=== PATIENT | female | born 1990 | race Caucasian/White ===

== ENCOUNTER 2025-09-05 09:24 | Outpatient (RCR) | payer OTHER, SELFPAY ==
[2025-09-05 09:26] VITALS: BP 125/73; PULSE 105; TEMP 36.5; O2SAT 98
[2025-09-05] MEDS: RHO(D) IMMUNE GLOBULIN 1,500 UNIT SYRINGE 1500 UNIT IM (09:33)
== END 2025-09-12 08:29 | disposition home or self-care (01) ==
LOC: LAB 09:24
PROVIDERS: Visit Provider Midwife
DX: Z51.81 Encounter for therapeutic drug level monitoring (principal); O09.899 Supervision of other high risk pregnancies, unspecified trimester
CPT/HCPCS: 36415; 86850; 86900; 86901; J2791

== ENCOUNTER 2025-09-26 09:51 | Outpatient (OUT) | payer OTHER, SELFPAY ==
[2025-09-26 10:17] VITALS: BP 108/73; PULSE 116
== END 2025-09-26 10:40 | disposition home or self-care (01) ==
LOC: FBCO 09:54 → FBC 10:07
PROVIDERS: Visit Provider Midwife
DX: O24.419 Gestational diabetes mellitus in pregnancy, unspecified control (principal); Z3A.31 31 weeks gestation of pregnancy
CPT/HCPCS: 59025

== ENCOUNTER 2025-10-03 07:52 | Outpatient (OUT) | payer OTHER, SELFPAY ==
--- OUTSIDE RECORDS SUMMARY | 2025-09-29 13:30 | XMS_ITS | Encounter Summary ---
Author Organization [facility] Address [address] [place] [address] Care Team Providers Care Research Epidemiologist Name Role Phone Felicita Coe NP Unavailable Raghavendra Leyva MD Primary Care Provider [phone] Encounter Details DateTypeDepartmentCare Team (Latest Contact Info)Lrykqieuxea77/18/2025 1:30 PM ESTAncillary Procedure [facility] [address] [place] [address] History of gestational diabetes Social History Tobacco UseTypesPacks/DayYears UsedDateSmoking Tobacco: NeverSmokeless Tobacco: NeverAlcohol UseStandard Drinks/WeekCommentsNot Currently0 (1 standard drink = 0.6 oz pure alcohol)Rare useHumiliation, Afraid, Rape, and Kick questionnaire AnswerDate RecordedWithin the last year, have you been afraid of your partner or ex-partner?No05/07/2023Within the last year, have you been humiliated or emotionally abused in other ways by your partner or ex-partner?No05/07/2023 Within the last year, have you been kicked, hit, slapped, or otherwise physically hurt by your partner or ex-partner?No05/07/2023Within the last year, have you been raped or forced to have any kind of sexual activity by your part ner or ex-partner?No05/07/2023Social Connection and Isolation PanelAnswerDate RecordedIn a typical week, how many times do you talk on the phone with family, friends, or neighbors?Three times a week05/07/2023How often do you get together with friends or relatives?Twice a week05/07/2023How often do you attend judaism or faith services?1 to 4 times per year05/07/2023o you belong to any clubs or organizations such as judaism groups, unions, fraternal or athletic groups, or school groups?No05/07/2023How often do you attend meetings of the clubs or organizations you belong to?Patient exmuzkca59/26/2023re you , , , , never , or living with a partner?Ecjvkws6605/07/2023 AUDIT-CAnswerDate RecordedQ1: How often do you have a drink containing alcohol? Monthly or less05/07/2023Q2: How many drinks containing alcohol do you have on a typical day when you are drinking?1 or Q3: How often do you have six or more drinks on one occasion?Never05/07/2023Overall Financial Resource Strain (CARDIA)AnswerDate RecordedHow hard is it for you to pay for the very basics like food, housing, medical care, and heating?Not hard at all05/07/2023HQ-2 AnswerDate RecordedPatient Health Questionnaire-2 Njpdt07912/04/2022[facility] [place] of Occupational Health - Occupational Stress QuestionnaireAnswerDate RecordedDo you feel stress - tense, restless, nervous, or anxious, or unable to sleep at night because yourmind is troubled all the time - these days?Not at all 05/07/2023Exercise Vital SignAnswerDate RecordedOn average, how many days per week do you engage in moderate to strenuous exercise (like a brisk walk)?2 days 05/07/2023On average, how many minutes do you engage in exercise at this level? 30 min05/07/2023Hunger Vital SignAnswerDate RecordedWithin the past 12 months, you worried that your food would run out before you got the money to buymore. Never true05/07/2023Within the past 12 months, the food you bought just didn't last and you didn't have money to get more.Never true07/26/2023PRAPARE - TransportationAnswerDate RecordedIn the past 12 months, has lack of transportation kept you from medical appointments or from getting medications?No 05/07/2023In the past 12 months, has lack of transportation kept you from meetings, work, or from getting things needed for daily living?No05/07/2023 Housing Stability Vital SignAnswerDate RecordedIn the last 12 months, was there a time when you were not able to pay the mortgage or rent on time?No05/07/2023In the last 12 months, how many places have you lived?In the last 12 months, was there a time when you did not have a steady place to sleep or slept in ashelter (including now)?No05/07/2023Estimated Date of Delivery BqalmoedGtn19/11/2026Based on last menstrual period of 02/16/2025 (Exact Date)Sex and Gender InformationValueDate RecordedSex Assigned at ImkgoAevkzh06/26/2023 9:04 AM EDTLegal GbsBzjbmc20/15/2023 6:48 PM EDTGender YtxntyfmWembdn17/26/2023 9:04 AM EDTSexual OrientationNot on fileOccupationIndustryJob Start DateJob End Datephysician assistantNot on fileNot on fileNot on filedocumented as of this encounter Plan of Treatment DateTypeDepartmentCare Team (Latest Contact Info)Dnygqodxngn85/24/2025 8:15 AM ESTAncillary Procedure [facility] [place] [facility] [address] [facility] [address] [place] [address] 10/11/2025 10:00 AM ESTRoutine [facility] [place] [facility] [address] [place] [address] Keshia Lema, ROELM [address] [place] [address] 10/14/2025 8:15 AM ESTAncillary Procedure [facility] [place] [facility] [address] [facility] [address] [place] [address] 10/18/2025 8:30 AM ESTRoutine [facility] [place] [facility] [address] [facility] [place] [place] [address] Keshia Lema CNM [address] [place] [address] 10/21/2025 11:00 AM ESTAncillary Procedure [facility] [place] [facility] [address] [facility] [address] [place] [address] 10/25/2025 10:00 AM ESTRoutine [facility] [place] [facility] [address] [facility] [place] [address] Keshia Lema CNM [address] [place] [address] 10/28/2025 8:15 AM ESTAncillary Procedure [facility] [place] [facility] [address] [place] [address] 10/31/2025 1:30 PM ESTRoutine [facility] [place] [facility] [address] [facility] [place] [address] Keshia Lema CN [address] [place] [address] 11/03/2025 10:30 AM ESTAncillary Procedure [facility] [place] [facility] [address] [facility] [address] [place] [address] 11/07/2025 1:30 PM ESTRoutine [facility] [place] [facility] [address] [facility] [place] [address] Keshia Lema CN [address] [place] [address] 11/10/2025 10:00 AM ESTAncillary Procedure [facility] [place] [facility] [address] [facility] [address] [place] [address] 11/15/2025 10:00 AM ESTRoutine [facility] [address] [facility] [place] [address] Keshia Lema, CNM [address] [place] [address] 11/18/2025 10:30 AM ESTAncillary Procedure [facility] [address] [facility] [address] [place] [address] 03/01/2026 9:00 AM EDTOffice Visit [facility] [address] [facility] [place] [address] Keshia Lema, CNM [address] [place] [address] NameTypePriorityAssociated DiagnosesDate/TimeUS biophysical profile wo non stress testingImagingRoutine History of gestational diabetes 09/29/2025 1:40 PM ESTdocumented as of this encounter Visit Diagnoses Diagnosis History of gestational diabetes Personal history of other genital system and obstetric disorders documented in this encounter Care Teams Team MemberRelationshipSpecialtyStart DateEnd Date Raghavendra Leyva MD [address] [place] [address] PCP - GeneralFamily Medicine06/16/25 Felicita Coe NP [address] [facility], [place] [phone] Nurse PractitionerFamily Medicine02/18/25documented as of this encounter
--- OUTSIDE RECORDS SUMMARY | 2025-09-29 14:30 | XMS_ITS | Encounter Summary ---
Author Organization [facility] Address [address] [place] [address] Care Team Providers Care Calender Wind Up Tender Name Role Phone Felicita Coe NP Unavailable [phone] Raghavendra Leyva MD Primary Care Provider [phone] Encounter Details DateTypeDepartmentCare Team (Latest Contact Info)Uxrttgwygsh60/18/2025 2:30 PM ESTRoutine [facility] [address] [place] [address] Keshia Lema, CNM [address] [place], [place] [phone] History of gestational diabetes (Primary Dx); Encounter for supervision of other normal , third trimester ([facility]) Social History Tobacco UseTypesPacks/DayYears UsedDateSmoking Tobacco: NeverSmokeless [...] relatives?Twice a week05/07/2023How often do you attend lutheran or jainism services?1 to 4 times per year05/07/2023o you belong to any clubs or organizations such as lutheran groups, unions, fraRingpay or athletic groups, or school groups?No05/07/2023How often do you attend meetings of the clubs or organizations you belong to?Patient oyinyvqc55/26/2023re you , , , , never , or living with a partner?Bhqzolp4505/07/2023 AUDIT-CAnswerDate RecordedQ1: How often do you have [...] hard at all05/07/2023HQ-2 AnswerDate RecordedPatient Health Questionnaire-2 Gaxey05112/04/2022[facility] [place] of Occupational Health - Occupational Stress QuestionnaireAnswerDate [...] you didn't have money to get more.Never true05/07/2023RAPARE - TransportationAnswerDate RecordedIn the past 12 months, [...] steady place to sleep or slept in loogooteeelter (including now)?No05/07/2023Estimated Date of Delivery RqefequuAqj64/11/2026ased on last menstrual period of 02/16/2025 (Exact Date)Sex and Gender InformationValueDate RecordedSex Assigned at MfbbrAawffu43/26/2023 9:04 AM EDTLegal JsmUdqwwf18/15/2023 6:48 PM EDTGender QpitsfqpDbjvdy73/26/2023 9:04 AM EDTSexual OrientationNot on fileOccupationIndustryJob Start DateJob End Datephysician assistantNot on fileNot on fileNot on filedocumented as of this encounter Last Filed Vital Signs Vital SignReadingTime TakenCommentsBlood Cmhvamci176/7209/29/2025 1:41 PM EST Pulse--Temperature--Respiratory Rate--Oxygen Saturation--Inhaled Oxygen Concentration--Abprzm42.4 kg (175 lb)09/29/2025 1:41 PM ESTHeight--Body Mass Index25.8410/03/2023 8:24 AM ESTdocumented in this encounter Progress Notes * Keshia Lema CNM - 09/29/2025 2:30 PM EST Subjective No chief complaint on file. Yonatan Braden is a 35 y.o. at 32w1d with a working estimated date of delivery of 11/23/2025, by Last Menstrual Period who presents for a routine visit. She denies vaginal bleeding, leakage of fluid, decreased movements, or contractions. OB History Para Term AB Living 3 2 2 SAB IAB Ectopic Multiple Live Births 2 # Outcome Date GA Lbr Elbert/2nd Weight Sex Type Anes PTL Lv 3 Current 2 Para 9 lb 1 oz Vag-Spont Comments: small 1st degree not repaired 1 Para 8 lb 8 oz Vag-Spont Her is complicated by: GDM Objective Physical Exam Weight: 175 lb Expected Total Weight Gain: 25 lb-35 lb Pregravid BMI: 23.62 BP: 118/72 Urine protein-negative Urine glucose-negative Assessment/Plan Diagnoses and all orders for this visit: History of gestational diabetes Encounter for supervision of other normal , third trimester ([facility]) Continue vitamin. Labs reviewed. GBS at 36 weeks Expected mode of delivery Follow up in 1 week for a routine visit. documented in this encounter Plan of Treatment DateTypeDepartmentCare Team (Latest Contact Info)Vezyzsubwje26/24/2025 8:15 AM ESTAncillary Procedure [facility] [place] [facility] [address] [address] 10/11/2025 10:00 AM ESTRoutine [facility] [place] [facility] [address] [place] [address] Keshia Lema CNM [address] [place] [address] 10/14/2025 8:15 AM ESTAncillary Procedure [facility] [place] [facility] [address] [address] 10/18/2025 8:30 AM ESTRoutine [facility] [place] [facility] [address] [place] [address] Keshia Lema, ROEL [address] [place] [address] 10/21/2025 11:00 AM ESTAncillary Procedure [facility] [place] [facility] [address] [facility] [address] [place] [address] 10/25/2025 10:00 AM ESTRoutine [facility] [place] [facility] [address] [place] [address] Keshia Lema, CN [address] [place] [address] 10/28/2025 8:15 AM ESTAncillary Procedure [facility] [place] [facility] [address] [facility] [address] [place] [address] 10/31/2025 1:30 PM ESTRoutine [facility] [place] [facility] [address] [place] [address] Keshia Lema, CN [address] [place] [address] 11/03/2025 10:30 AM ESTAncillary Procedure [facility] [place] [facility] [address] [facility] [address] [place] [address] 11/07/2025 1:30 PM ESTRoutine [facility] [place] [facility] [address] [place] [address] Keshia Lema, CN [address] [place] [address] 11/10/2025 10:00 AM ESTAncillary Procedure [facility] [place] [facility] [address] [facility] [address] [place] [address] 11/15/2025 10:00 AM ESTRoutine [facility] [place] [facility] [address] [place] [address] Keshia Lema, CN [address] [facility] [place] [address] 11/18/2025 10:30 AM ESTAncillary Procedure [facility] [address] [facility] [address] [facility] [place] [address] 03/01/2026 9:00 AM EDTOffice Visit [facility] [address] [facility] [place] [address] Keshia Lema, CN [address] [facility], [place] [phone] documented as of this encounter Visit Diagnoses Diagnosis History of gestational diabetes- Primary Personal history of other genital system and obstetric disorders Encounter for supervision of other normal , third trimester ([facility]) documented in this encounter Care Teams Team MemberRelationshipSpecialtyStart DateEnd Date Raghavendra Leyva MD [address] [place] [address] PCP - GeneralFamily Medicine06/16/25 Felicita Coe NP [address] [facility] [place], [place] [address] Nurse PractitionerFamily Medicine02/18/25documented as of this encounter
--- OUTSIDE RECORDS SUMMARY | 2025-10-03 07:56 | XMS_ITS | Encounter Summary ---
Author Organization [facility] Address [address] [place] [address] Care Team Providers Care Partition Making Machine Operator Name Role Phone Felicita Coe NP Unavailable [phone] Raghavendra Leyva MD Primary Care Provider [phone] Encounter Details DateTypeDepartmentCare Team (Latest Contact Info)Hpfhlfhoemg99/18/2025Bamboo flowsheet [facility] [address] [place] [address] Keshia Lema, CN [address] [place] [address] Social History Tobacco UseTypesPacks/DayYears UsedDateSmoking Tobacco: NeverSmokeless [...] relatives?Twice a week05/07/2023How often do you attend rastafarian or denominational services?1 to 4 times per year05/07/2023o you belong to any clubs or organizations such as rastafarian groups, unions, fraUNITED ORTHOPEDIC GROUP or athletic groups, or school groups?No05/07/2023How often do you attend meetings of the clubs or organizations you belong to?Patient fsolykkm72/26/2023re you , , , , never , or living with a partner?Cdwqozg1505/07/2023 AUDIT-CAnswerDate RecordedQ1: How often do you have [...] hard at all05/07/2023HQ-2 AnswerDate RecordedPatient Health Questionnaire-2 Fttyo68312/04/2022[facility] [place] of Occupational Health - Occupational Stress QuestionnaireAnswerDate [...] in ashelter (including now)?No05/07/2023Estimated Date of Delivery RsvfatdhFki30/11/2026Based on last menstrual period of 02/16/2025 (Exact Date)Sex and Gender InformationValueDate RecordedSex Assigned at ZemarBrtniq77/26/2023 9:04 AM EDTLegal EjgNimwex15/15/2023 6:48 PM EDTGender WrxamvvkSzjgow90/26/2023 9:04 AM EDTSexual OrientationNot on fileOccupationIndustryJob Start DateJob End Datephysician assistantNot on fileNot on fileNot on filedocumented as of this encounter Plan of Treatment DateTypeDepartmentCare Team (Latest Contact Info)Bnayjcugmfg68/24/2025 8:15 AM ESTAncillary Procedure [facility] [address] [facility] [address] [place] [address] 10/11/2025 10:00 AM ESTRoutine [facility] [address] [place] [address] Keshia Lema CNM [address] [place], [place] [address] 10/14/2025 8:15 AM ESTAncillary Procedure [facility] [address] [facility] [address] [place] [address] 10/18/2025 8:30 AM ESTRoutine [facility] [address] [facility] [place] [address] Keshia Lema, CN [address] [facility] [place] [address] 10/21/2025 11:00 AM ESTAncillary Procedure [facility] [address] [facility] [address] [place] [address] 10/25/2025 10:00 AM ESTRoutine [facility] [address] [facility] [place] [address] Keshia Lema, CN [address] [place] [address] 10/28/2025 8:15 AM ESTAncillary Procedure [facility] [address] [facility] [address] [place] [address] 10/31/2025 1:30 PM ESTRoutine [facility] [address] [facility] [place] [address] Keshia Lema, [facility] [address] [place] [address] 11/03/2025 10:30 AM ESTAncillary Procedure [facility] [address] [facility] [address] [place] [address] 11/07/2025 1:30 PM ESTRoutine [facility] [place] [facility] [address] [facility] [place] [address] Keshia Lema, CN [address] [place] [address] 11/10/2025 10:00 AM ESTAncillary Procedure [facility] [place] [facility] [address] [facility] [address] [place] [address] 11/15/2025 10:00 AM ESTRoutine [facility] [place] [facility] [address] [facility] [place] [address] Keshia Lema, CNM [address] [place] [address] 11/18/2025 10:30 AM ESTAncillary Procedure [facility] [place] [facility] [address] [facility] [address] [place] [address] 03/01/2026 9:00 AM EDTOffice Visit [facility] [place] [facility] [address] [facility] [place] [address] Keshia Lema, ROEL [address] [place] [address] documented as of this encounter Visit Diagnoses Not on filedocumented in this encounter Care Teams Team MemberRelationshipSpecialtyStart DateEnd Date Raghavendra Leyva MD [address] [place] [address] PCP - GeneralFamily Medicine06/16/25 Felicita Coe NP [address] [place] [address] Nurse PractitionerFamily Medicine02/18/25documented as of this encounter
--- OUTSIDE RECORDS SUMMARY | 2025-10-03 07:56 | XMS_ITS | Clinical Summary ---
Author Organization [facility] Address [address] [place] [address], [address] [place] [address] Care Team Providers Care Industrial Relations Manager Name Role Phone Ijeoma Sanchez DO Primary Care Provider Unavailabl e Allergies No known active allergies Medications No known medications Active Problems ProblemNoted DateDiagnosed DateTerm iypsxrxos50/04/2020NSVD (normal spontaneous vaginal delivery)Normal delivery Resolved Problems ProblemNoted DateDiagnosed DateResolved DateNormal labor/ Immunizations ImmunizationAdministration DatesNext DueMMR, PRIORIX, M-M-R II, (age 12m+), SC, 0.5mL09/30/2021(Deferred: - Rubella Immune) Family History Medical HistoryRelationNameCommentsDiabetesMaternal GrandmotherRelationName StatusCommentsMaternal Grandmother Social History Tobacco UseTypesPacks/DayYears UsedDateSmoking Tobacco: NeverAlcohol UseStandard Drinks/WeekCommentsNever0 (1 standard drink = 0.6 oz pure alcohol)AUDIT-CAnswer Date RecordedQ1: How often do you have a drink containing alcohol?Never 2020Average Number of DrinksNot on file2020Frequency of Binge DrinkingNot on file2020CommentsNoSex and Gender InformationValue Date RecordedSex Assigned at BirthNot on fileLegal MvzRawckq15/10/2013 11:50 AM ESTGender IdentityNot on fileSexual OrientationNot on file Last Filed Vital Signs Vital SignReadingTime TakenCommentsBlood Gzxatqpm871/7409/30/2021 3:25 PM EST Hbqro9081/19/2021 3:25 PM YTWLtndgeemxek41.4 ??C (97.6 ??F)09/30/2021 3:25 PM ESTRespiratory Ovui7967 3:25 PM ESTOxygen Jfbptwfxzi08%09/29/2021 10:39 AM ESTInhaled Oxygen Concentration--Nbxied74.6 kg (180 lb)09/29/2021 4:44 AM EST Sxhxnp299.3 cm (5' 9 )09/29/2021 4:44 AM ESTBody Mass Index26.5809/29/2021 4:44 AM EST Plan of Treatment Not on file Insurance Advance Directives * Full Code (Latest Code Status on File) Date ActivatedDate YahhwnuqbjxNhvfhzao91/18/2021 11:44 AM09/30/2021 8:51 PM * Full Code Date ActivatedDate VmmmmbknmxuCguxhgxq44/18/2021 5:10 AM09/29/2021 11:43 AM * Full Code Date ActivatedDate InactivatedComments2020 11:42 PM03/18/2020 3:33 PM * Full Code Date ActivatedDate InactivatedComments2020 9:36 AM2020 11:42 PM Care Teams Team MemberRelationshipSpecialtyStart DateEnd Date Ijeoma Sanchez DO PCP - Osppdtn90/18/21
--- OUTSIDE RECORDS SUMMARY | 2025-10-03 07:56 | XMS_ITS | Clinical Summary ---
Author Organization [facility] Address [address] [place] [address] Care Team Providers Care Educational Therapy Teacher Name Role Phone Felicita Coe NP Unavailable [phone] Raghavendra Leyva MD Primary Care Provider [phone] Allergies No known active allergies Medications No known medications Active Problems ProblemNoted DateDiagnosed DateDelivery normal ([facility])10/03/2023menorrhea 05/15/2023nxiety tvyxhomf24/03/2023eneralized anxiety xolrrevu45/03/2023herry bzzpaep0605/15/2023Fibrocystic breast rmtjsnf1405/15/2023Irritable bowel syndrome with khegpzig66/03/2023Melanocytic nevi of trunk05/15/2023Ovarian cyst05/15/2023 Term ([facility])2020PAC (premature atrial contraction)01/04/2020 Estimated Date of UtgumybyZojuwxgfHrj96/11/2026Based on last menstrual period of 02/16/2025 (Exact Date) Encounters DateTypeDepartmentCare NcnbMtizzaztykp32/18/2025 2:30 PM ESTRoutine [facility] [address] [place] [address] Keshia Lema CNM History of gestational diabetes (Primary Dx); Encounter for supervision of other normal , third trimester ([facility]) 09/29/2025 1:30 PM ESTAncillary Procedure [facility] [place] [facility] [address] [facility] [address] [place] [address] History of gestational tilbbdoi05/18/2025[facility] flowsheet [facility] [address] [facility] [address] Keshia Lema CNM 09/29/20259628Tvumvf60/17/1345Grroxj83/02/2025 10:00 AM ESTAncillary Procedure [facility] [address] [address] related condition in third trimester ([facility])09/13/2025 10:00 AM EST Routine [facility] [address] [place] [address] Keshia Lema CNM History of gestational istjshyc42/02/2025[facility] flowsheet [facility] [address] [place] [address] Keshia Lema CNM 09/13/20259502Gbrwzd28/25/9094Lexxqv17/06/2025Results Follow-Up [facility] [address] [place] [address] Fara Gayle MA GLUCOSE, GESTATIONAL SCREEN (50G)-135 CUTOFF, CBC08/10/2025 10:30 AM EDTRoutine [facility] [address] [place] [address] Keshia Lema CNM Encounter for supervision of other normal , second trimester ([facility]); Screening for diabetes mellitus (DM); Screening for iron deficiency anemia; related condition in third trimester ([facility])08/10/2025[facility] flowsheet [facility] [address] [place] [address] Keshia Lema CNM 08/09/20251317Tbkzgb07/30/2025 4:15 PM EDTRoutine [facility] [address] [place] [address] Pipercathy Keshia Goyal, CN 07/12/2025amboo flowsheet [facility] [address] [place] [address] Keshia Lema Jyotsna, CN 07/08/20254434Afefil78/24/8389Ohvffc46/23/2025 4:15 PM EDTAncillary Procedure [facility] [address] [place] [address] related condition in second trimester ([facility])07/05/2025Travel 07/04/2025Travelfrom Last 3 Months Immunizations ImmunizationAdministration DatesNext VhxCZQ94,1992,1992DTaP, Eeyspgarvrk38/13/1993HPV, Uwyfgzobfgoq41/04/2010,08/10/2009,06/08/2009Hep B, Adolescent or Mjpkrtshs39/25/2004,06/09/2003,05/05/2003Hib ([facility])07/25/1993, 1992,1992,1992IPV01/21/1997,07/25/1993,1992,1992 Influenza, injectable, kxyzzipoyulh40/04/2018Influenza, injectable, quadrivalent, preservative free07/17/2023,07/29/2022,07/19/2021,07/31/2020, 07/14/2019Influenza, seasonal, /09/2017,06/22/2015Influenza, seasonal, injectable, preservative free06/25/2014Influenza, seasonal, intradermal, preservative free07/04/2016MMR01/21/1997,07/25/1993Meningococcal XGF2O8606/08/2009Meningococcal GKMT166Rho(D)-IG07/13/2021,01/12/2020Tdap 07/12/2021,01/12/2020,06/08/2009,01/21/1997 Family History Medical HistoryRelationNameCommentsDiabetesFatherTimothy HoppePanic disorder FatherTimothy HoppeDiabetesFather's BrotherKeith HoppeAnxiety disorderFather's SisterDiabetesMaternal GrandfatherRobert GrayDiabetes type IMaternal Grandfather Arnaldo GrayHypertensionMaternal GrandfatherRobert GrayHypertensionMaternal GrandmotherSylvia GrayLung cancerMaternal GrandmotherSylvia Graycongestive cardiomyopathyMaternal GrandmotherSylvia Grayparathyroid adenomaMotherDiabetes Mother's Brother 1Rgwen Olivo JuniorDiabetesMother's Brother 2Jim GrayDiabetes Paternal GrandfatherGlenn HoppeAnxiety disorderSisterAlcohol abuseNeg HxDrug abuseNeg HxRelationNameStatusCommentsFatherTimothy HoppeAliveFather's Brother Bernabe HoppeFather's SisterMaternal GrandfatherRobert GrayDeceasedMaternal GrandmotherSylvkwasi GrayDeceasedMotherAliveMother's Brother 1Rgwen Olivo John Mother's Brother 2Jim GrayPaternal GrandfatherGlenn HoppeAlivePaternal GrandmotherAliveSister Social History Tobacco UseTypesPacks/DayYears UsedDateSmoking Tobacco: NeverSmokeless Tobacco: Never Tobacco Cessation:Counseling Given: Not Answered Alcohol UseStandard Drinks/WeekCommentsNot Currently0 (1 standard drink = 0.6 oz pure alcohol)Rare useHumiliation, Afraid, Rape, and Kick questionnaireAnswerDate RecordedWithin the last year, have you been afraid of your partner or ex-partner?05/07/2023Within the last year, have you been humiliated or emotionally abused in other ways by your partner or ex-partner?05/07/2023 Within the last year, have you been kicked, hit, slapped, or otherwise physically hurt by your partner or ex-partner?05/07/2023Within the last year, have you been raped or forced to have any kind of sexual activity by your part ner or ex-partner?05/07/2023Social Connection and Isolation PanelAnswerDate RecordedIn a typical week, how many times do you talk on the phone with family, friends, or neighbors?Three times a week05/07/2023How often do you get together with friends or relatives?Twice a week05/07/2023How often do you attend oriental orthodox or gnosticist services?1 to 4 times per year05/07/2023o you belong to any clubs or organizations such as oriental orthodox groups, unions, fraternal or athletic groups, or school groups?No05/07/2023How often do you attend meetings of the clubs or organizations you belong to?Patient /26/2023re you , , , , never , or living with a partner?Owjezpa2005/07/2023 AUDIT-CAnswerDate RecordedQ1: How often do you have [...] hard at all05/07/2023HQ-2 AnswerDate RecordedPatient Health Questionnaire-2 Cunkx95612/04/2022[facility] [place] of Occupational Health - Occupational Stress QuestionnaireAnswerDate [...] in ashelter (including now)?No05/07/2023Estimated Date of Delivery EhhvlwwkPbs17/11/2026Based on last menstrual period of 02/16/2025 (Exact Date)Sex and Gender InformationValueDate RecordedSex Assigned at DxpewVjcjju18/26/2023 9:04 AM EDTLegal EplVbmdla94/15/2023 6:48 PM EDTGender DecetrflKictqj30/26/2023 9:04 AM EDTSexual OrientationNot on fileOccupationIndustryJob Start DateJob End Datephysician assistantNot on fileNot on fileNot on file Last Filed Vital Signs Vital SignReadingTime TakenCommentsBlood Mpouqgaw883/7209/29/2025 1:41 PM EST Msyvn602110/03/2023 8:24 AM LAAVtmokcdujsa64 ??C (98.6 ??F)05/15/2023 3:28 PM EDT Respiratory Kyth787312/04/2022 8:24 AM ESTOxygen Afbevbpvmg62%10/03/2023 8:24 AM ESTInhaled Oxygen Concentration--Iatptd26.4 kg (175 lb)09/29/2025 1:41 PM EST Sckawa526.3 cm (5' 9 )10/03/2023 8:24 AM ESTBody Mass Index25.8410/03/2023 8:24 AM EST Plan of Treatment DateTypeDepartmentCare Team (Latest Contact Info)Reisurxbrer45/24/2025 8:15 AM ESTAncillary Procedure [facility] [place] [facility] [address] [facility] [address] [place] [address] 10/11/2025 10:00 AM ESTRoutine [facility] [place] [address] [facility] [address] Keshia Lema, CN [address] [place] [facility] [place] [address] 10/14/2025 8:15 AM ESTAncillary Procedure [facility] [place] [address] [facility] [address] [place] [address] 10/18/2025 8:30 AM ESTRoutine [facility] [place] [facility] [address] [facility] [place] [address] Keshia Lema, CN [address] [facility] [place] [address] 10/21/2025 11:00 AM ESTAncillary Procedure [facility] [place] [address] [facility] [address] [place] [address] 10/25/2025 10:00 AM ESTRoutine [facility] [place] [facility] [address] [facility] [place] [address] Keshia Lema, [facility] [address] [facility] [address] 10/28/2025 8:15 AM ESTAncillary Procedure [facility] [place] [address] [facility] [address] [place] [address] 10/31/2025 1:30 PM ESTRoutine [facility] [place] [facility] [address] [address] Keshia Lema, CN [address] [facility] [place] [address] 11/03/2025 10:30 AM ESTAncillary Procedure [facility] [place] [address] [facility] [address] [facility] [address] 11/07/2025 1:30 PM ESTRoutine [facility] [place] [facility] [address] [facility] [place] [place] [address] Keshia Lema, CNM [address] [facility] [place] [address] 11/10/2025 10:00 AM ESTAncillary Procedure [facility] [place] [facility] [address] [facility] [address] [place] [address] 11/15/2025 10:00 AM ESTRoutine [facility] [place] [facility] [address] [facility] [place] [address] Keshia Lema, ROELM [address] [facility] [place] [address] 11/18/2025 10:30 AM ESTAncillary Procedure [facility] [place] [facility] [address] [facility] [address] [place] [address] 03/01/2026 9:00 AM EDTOffice Visit [facility] [place] [facility] [address] [facility] [place] [place] [address] Keshia Lema, ROELM [address] [facility] [place] [address] Procedures Procedure NamePriorityDate/TimeAssociated DiagnosisCommentsUS OB FOLLOW UP TRANSABDOMINAL HCRFLCGPFlzhgil36/02/2025 10:27 AM EST related condition in third trimester ([facility]) SLGIiqcwnz05/04/2025 9:22 AM EST Screening for iron deficiency anemia GLUCOSE, GESTATIONAL SCREEN (50G)-135 RLQPLRFbmullx69/04/2025 9:22 AM EST Screening for diabetes mellitus (DM) US OB 14+ WEEKS ANATOMY EGBRYfspusb12/23/2025 5:03 PM EDT related condition in second trimester ([facility]) from Last 3 Months Results * US OB follow up transabdominal approach (09/13/2025 10:27 AM EST)Anatomical RegionLateralityModalityBodyUltrasoundSpecimen (Source)Anatomical Location / LateralityCollection Method / VolumeCollection TimeReceived Time09/13/2025 12:22 PM EST Impressions 09/13/2025 12:36 PM EST 1. Single, live intrauterine , current sonographic age of 31 weeks and 0 days, with an estimated date of delivery of November 15, 2025. 2. ??Comparison made with prior examination of July 05, 2025 ?? weight percentile at thattime was 73.8%and delivery was November 20, 2025. * ??Estimated Weight (g) by Percentile is based upon an accurate estimated age based onlast menstrual period. ?? TRANSCRIBED BY: ? ELECTRONICALLY SIGNED BY: Warner Brown MD Narrative 09/13/2025 12:36 PM EST A single, live intrauterine is present with normal cardiac rate of 139 beats per minute. Normal activity and amniotic fluid volume. Amniotic fluid index is 14 cm. Morphology is grossly normal. The cervix is long and closed, 4.5cm. The placenta is anterior, Grade 1 not associated with the cervical os. The current sonographic age is 31 weeks and 0 days, based on the following measurements: BPD ?7.7cm (31 weeks, 0 days) Head Circumference ?28.8 cm (31 weeks, 5 days) Abdominal Circumference ?28.6cm (30 weeks, 5 days) Femur Length ?5.9cm (30 weeks, 6 days) Presentation ? Cephalic ? Placenta ? Anterior, Grade 1 Weight (g) by Percentile ??72.6 % * These measurements result in an estimated date of delivery of ??November 15, 2025 ??The current estimated weight is ??1655 ??grams ( 3 pound, ??10 ounces). ?? Procedure Note Warner Brown MD - 09/13/2025 A single, live intrauterine is present with normal cardiacrate of 139 beats per minute. Normal activity and amniotic fluidvolume. Amniotic fluid index is 14 cm. Morphology is grossly normal. Thecervix is long and closed, 4.5cm. The placenta is anterior, Grade 1 notassociated with the cervical os. The current sonographic age is 31 weeksand 0 days, based on the following measurements: BPD 7.7cm (31 weeks, 0 days) Head Circumference 28.8 cm (31 weeks, 5 days) Abdominal Circumference 28.6cm (30 weeks, 5 days) Femur Length 5.9cm (30 weeks, 6 days) Presentation Cephalic Placenta Anterior, Grade 1 Weight (g) by Percentile 72.6 % * These measurements result in an estimated date of delivery of November The current estimated weight is 1655 grams ( 3 pound, 10ounces). IMPRESSION: 1. Single, live intrauterine , current sonographic age of 31weeks and 0 days, with an estimated date of delivery of November 15, 2025. 2. Comparison made with prior examination of July 05, 2025 fetalweight percentile at that time was 73.8%and delivery was November 20, 2025. * Estimated Weight (g) by Percentile is based upon an accurateestimated age based on last menstrual period. TRANSCRIBED BY: ELECTRONICALLY SIGNED BY: Warner Brown MD Authorizing ProviderResult TypeResult StatusValerimonse Lema [facility] US PROCEDURESFinal Result * (ABNORMAL) GLUCOSE, GESTATIONAL SCREEN (50G)-135 CUTOFF (08/16/2025 9:22 AM EST)ComponentValueRef RangeTest MethodAnalysis TimePerformed AtPathologist SignatureGLUCOSE, GESTATIONAL SCREEN (50G)-135 IUOEXL127(H)<135 mg/dLQUEST Comment: One hour value of > or = 135 mg/dL indicates the need for a diagnostic 75 g dose 2-hour or 100 g dose 3-hour oral glucose tolerance test; patient fasting is required. Specimen (Source)Anatomical Location / LateralityCollection Method / Volume Collection TimeReceived Time08/16/2025 9:22 AM EST08/16/2025 9:23 AM EST Narrative Resulting Agency Comment Performing Organization Information ?Site ID: QPT ?Name: [facility] ?Address: [address] [place] [address], [address] [place] [address] ?Director: Papo Farrar MD Authorizing ProviderResult TypeResult StatusValerimonse Lema [facility] BLOOD ORDERABLESFinal ResultPerforming OrganizationAddressCity/State/ZIP CodePhone Number [facility] * (ABNORMAL) CBC (08/16/2025 9:22 AM EST)ComponentValueRef RangeTest Method Analysis TimePerformed AtPathologist SignatureWHITE BLOOD CELL COUNT10.33.8 - 10.8 Thousand/uLQUESTRED BLOOD CELL COUNT3.76(L)3.80 - 5.10 Million/uLQUEST KONDITTWWW08.411.7 - 15.5 g/dPZKGWLXDRVNKPOAJ22.535.0 - 45.0 %UPHYHQJP29.180.0 - 100.0 nSKWAVZPVC91.027.0 - 33.0 pgJMEJKXSOS56.032.0 - 36.0 g/dLQUESTComment: For adults, a slight decrease in the calculated MCHC value (in the range of 30 to 32 g/dL) is most likely not clinically significant; however, it should be interpreted with caution in correlation with other red cell parameters and the patient's clinical condition. RDW11.511.0 - 15.0 %QUESTPLATELET DBAGP163924 - 400 Thousand/mGBZFEZRKD52.47.5 - 12.5 fLQUESTSpecimen (Source)Anatomical Location / LateralityCollection Method / VolumeCollection TimeReceived TimeBloodVenous blood specimen / Sihmwij8408/16/2025 9:22 AM EST08/16/2025 9:23 AM EST Narrative Resulting Agency Comment Performing Organization Information ?Site ID: QPT ?Name: [facility] ?Address: [address] [facility], [address] [place] [address] ?Director: Papo Farrar MD Authorizing ProviderResult TypeResult StatusValemanny Lema CNMLAB BLOOD ORDERABLESFinal ResultPerforming OrganizationAddressCity/State/ZIP CodePhone Number [facility] * US OB 14+ weeks anatomy scan (07/05/2025 5:03 PM EDT)Anatomical Region LateralityModalityBodyUltrasoundSpecimen (Source)Anatomical Location / LateralityCollection Method / VolumeCollection TimeReceived Time07/07/2025 11:53 AM EDT Impressions 07/07/2025 12:01 PM EDT Single, live intrauterine , current sonographic age of 20 weeks and 2 days, with an estimated date of delivery of November 20, 2025. * ??Estimated Weight (g) by Percentile is based upon an accurate estimated age based onlast menstrual period. ?? TRANSCRIBED BY: ? ELECTRONICALLY SIGNED BY: Warner Brown MD Narrative 07/07/2025 12:01 PM EDT FINDINGS: A single, live intrauterine is present with normal cardiac rate of 163 beats per minute. Normal activity and amniotic fluid volume. Amniotic fluid index is 15 cm. ??Morphology is grossly normal. The cervix is long and closed, 5.2 cm. ??The placenta is anterior, not associated with the cervical os. ??The current sonographic age is 20 weeks and 2 days, based on the following measurements: ?BPD ?4.6 cm (19 weeks, 6 days) ?Head Circumference ? 18.2 cm (20 weeks, 4 days) ?Abdominal Circumference ? 15.2 cm (20 weeks, 3 days) ?Femur Length ?3.3 cm (20 weeks, 2 days) ?Presentation ?Breech ?Placenta ?Anterior Grade 0 ? Weight (g) by Percentile ?? 73.8 % * These measurements result in an estimated date of delivery of November 20, 2025. ??The current estimated weight is 350 grams (0 pounds, 12 ounces). ?? Procedure Note Warner Brown MD - 07/07/2025 FINDINGS: A single, live intrauterine is present with normal cardiacrate of 163 beats per minute. Normal activity and amniotic fluidvolume. Amniotic fluid index is 15 cm. Morphology is grossly normal. Thecervix is long and closed, 5.2 cm. The placenta is anterior, notassociated with the cervical os. The current sonographic age is 20 weeksand 2 days, based on the following measurements: BPD 4.6 cm (19 weeks, 6 days) Head Circumference 18.2 cm (20 weeks, 4 days) Abdominal Circumference 15.2 cm (20 weeks, 3 days) Femur Length 3.3 cm (20 weeks, 2 days) Presentation Breech Placenta Anterior Grade 0 Weight (g) by Percentile 73.8 % * These measurements result in an estimated date of delivery of November. The current estimated weight is 350 grams (0 pounds, 12ounces). IMPRESSION: Single, live intrauterine , current sonographic age of 20 weeksand 2 days, with an estimated date of delivery of November 20, 2025. * Estimated Weight (g) by Percentile is based upon an accurateestimated age based on last menstrual period. TRANSCRIBED BY: ELECTRONICALLY SIGNED BY: Warner Brown MD Authorizing ProviderResult TypeResult StatusValemanny Lema CNFA[facility]CH[facility] PROCEDURESFinal Result from Last 3 Months Insurance Care Teams Team MemberRelationshipSpecialtyStart DateEnd Date Raghavendra Leyva MD [address] [place] [phone] PCP - GeneralFamily Medicine06/16/25 Felicita Coe NP [address] [place], [place] [phone] Nurse PractitionerFamily Medicine02/18/25
--- OUTSIDE RECORDS SUMMARY | 2025-10-03 07:56 | XMS_ITS | Encounter Summary ---
Author Organization [facility] Address [address] [place] [address] Care Team Providers Care Chief Controller Name Role Phone Felicita Coe NP Unavailable [phone] Raghavendra Leyva MD Primary Care Provider [phone] Encounter Details DateTypeDepartmentCare Team (Latest Contact Info)Zwurzxetpcr74/17/2025Travel Social History Tobacco UseTypesPacks/DayYears UsedDateSmoking Tobacco: NeverSmokeless [...] relatives?Twice a week05/07/2023How often do you attend jew or adventism services?1 to 4 times per year05/07/2023o you belong to any clubs or organizations such as jew groups, unions, fraternal or athletic groups, or school groups?No05/07/2023How often do you attend meetings of the clubs or organizations you belong to?Patient noesoidw29/26/2023re you , , , , never , or living with a partner?Bsfjazg6205/07/2023 AUDIT-CAnswerDate RecordedQ1: How often do you have [...] hard at all05/07/2023HQ-2 AnswerDate RecordedPatient Health Questionnaire-2 Dvceo91312/04/2022[facility] [place] of Occupational Health - Occupational Stress QuestionnaireAnswerDate [...] in ashelter (including now)?No05/07/2023Estimated Date of Delivery SaaynhsyGof93/11/2026Based on last menstrual period of 02/16/2025 (Exact Date)Sex and Gender InformationValueDate RecordedSex Assigned at JagggUlihev99/26/2023 9:04 AM EDTLegal VmnHlirkj37/15/2023 6:48 PM EDTGender XohlxoggUtqdjz04/26/2023 9:04 AM EDTSexual OrientationNot on fileOccupationIndustryJob Start DateJob End Datephysician assistantNot on fileNot on fileNot on filedocumented as of this encounter Plan of Treatment DateTypeDepartmentCare Team (Latest Contact Info)Xissvfebjif17/24/2025 8:15 AM ESTAncillary Procedure [facility] [place] [facility] [address] [phone] 10/11/2025 10:00 AM ESTRoutine [facility] [place] [facility] [address] [place] [address] Keshia Lema CNM [address] [place] [address] 10/14/2025 8:15 AM ESTAncillary Procedure [facility] [place] [facility] [address] [facility] [address] [place] [address] 10/18/2025 8:30 AM ESTRoutine [facility] [place] [facility] [address] [place] [address] Keshia Lema CN [address] [facility] [address] 10/21/2025 11:00 AM ESTAncillary Procedure [facility] [place] [facility] [address] [facility] 130 [place] [address] 10/25/2025 10:00 AM ESTRoutine [facility] [place] [facility] [address] [facility] [place] [address] Keshia Lema, CN [address] [facility] [place] [address] 10/28/2025 8:15 AM ESTAncillary Procedure [facility] [place] [facility] [address] [facility] [address] [place] [address] 10/31/2025 1:30 PM ESTRoutine [facility] [place] [facility] [address] [facility] [address] Keshia Lema, CN [address] [place] [facility] [place] [address] 11/03/2025 10:30 AM ESTAncillary Procedure [facility] [place] [facility] [address] [facility] [address] [place] [address] 11/07/2025 1:30 PM ESTRoutine [facility] [place] [facility] [address] [facility] [place] [address] Keshia Lema, CN [address] [place] [facility] [place] [address] 11/10/2025 10:00 AM ESTAncillary Procedure [facility] [place] [facility] [address] [facility] [address] [place] [address] 11/15/2025 10:00 AM ESTRoutine [facility] [place] [facility] [address] [facility] [place] [address] Keshia Lema, CNM [address] [facility] [place], [place] [address] 11/18/2025 10:30 AM ESTAncillary Procedure [facility] [address] [facility] [address] [place] [address] 03/01/2026 9:00 AM EDTOffice Visit [facility] [address] [facility] [place] [place] [address] Keshia Lema, ROEL [address] [facility] [place], [place] [phone] documented as of this encounter Visit Diagnoses Not on filedocumented in this encounter Care Teams Team MemberRelationshipSpecialtyStart DateEnd Date Raghavendra Leyva MD [address] [place] [phone] PCP - GeneralFamily Medicine06/16/25 Felicita Coe NP [address] [facility] [place], [place] [address] Nurse PractitionerFamily Medicine02/18/25documented as of this encounter
--- OUTSIDE RECORDS SUMMARY | 2025-10-03 07:56 | XMS_ITS | Encounter Summary ---
Author Organization [facility] Address [address] [place] [address] Care Team Providers Care Upsetter Setter Up Name Role Phone Felicita Coe NP Unavailable [phone] Raghavendra Leyva MD Primary Care Provider [phone] Encounter Details DateTypeDepartmentCare Team (Latest Contact Info)Rvwtyqiptxx98/18/2025Travel Social History Tobacco UseTypesPacks/DayYears UsedDateSmoking Tobacco: NeverSmokeless [...] relatives?Twice a week05/07/2023How often do you attend gnosticism or alevism services?1 to 4 times per year05/07/2023o you belong to any clubs or organizations such as gnosticism groups, unions, fraternal or athletic groups, or school groups?No05/07/2023How often do you attend meetings of the clubs or organizations you belong to?Patient /26/2023re you , , , , never , or living with a partner?Ktiztpq9005/07/2023 AUDIT-CAnswerDate RecordedQ1: How often do you have [...] hard at all05/07/2023HQ-2 AnswerDate RecordedPatient Health Questionnaire-2 Eylbf43712/04/2022[facility] [place] [facility] - Occupational Stress QuestionnaireAnswerDate [...] in ashelter (including now)?No05/07/2023Estimated Date of Delivery PourfbujYxz23/11/2026Based on last menstrual period of 02/16/2025 (Exact Date)Sex and Gender InformationValueDate RecordedSex Assigned at LtvsoHuxbae00/26/2023 9:04 AM EDTLegal ZsfGoievg19/15/2023 6:48 PM EDTGender YvaenrbcLevbht42/26/2023 9:04 AM EDTSexual OrientationNot on fileOccupationIndustryJob Start DateJob End Datephysician assistantNot on fileNot on fileNot on filedocumented as of this encounter Plan of Treatment DateTypeDepartmentCare Team (Latest Contact Info)Edahnelzhmj87/24/2025 8:15 AM ESTAncillary Procedure [facility] [address] [phone] 10/11/2025 10:00 AM ESTRoutine [facility] [address] [place] [phone] Keshia Lema CNM [address] [place] [address] 10/14/2025 8:15 AM ESTAncillary Procedure [facility] [address] [facility] [address] [place] [phone] 10/18/2025 8:30 AM ESTRoutine [facility] [address] [place] [phone] Keshia Lema CN [address] [place] [facility] [place] [address] 10/21/2025 11:00 AM ESTAncillary Procedure [facility] [address] [facility] [address] [place] [address] 10/25/2025 10:00 AM ESTRoutine [facility] [address] [facility] [place] [address] Keshia Lema, CN [address] [place] [facility] [place] [address] 10/28/2025 8:15 AM ESTAncillary Procedure [facility] [address] [facility] [address] [place] [phone] 10/31/2025 1:30 PM ESTRoutine [facility] [address] [facility] [place] [address] Keshia Lema, CN [address] [facility] [place] [address] 11/03/2025 10:30 AM ESTAncillary Procedure [facility] [address] [facility] [address] [place] [address] 11/07/2025 1:30 PM ESTRoutine [facility] [address] [facility] [place] [address] Keshia Lema, CN [address] [facility] [place] [address] 11/10/2025 10:00 AM ESTAncillary Procedure [facility] [address] [facility] [address] [place] [phone] 11/15/2025 10:00 AM ESTRoutine [facility] [address] [facility] [place] [phone] Keshia Lema, CNM [address] [facility] [place], [place] [phone] 11/18/2025 10:30 AM ESTAncillary Procedure [facility] [address] [facility] [address] [place] [address] 03/01/2026 9:00 AM EDTOffice Visit [facility] [address] [place] [phone] Keshia Lema, ROEL [address] [facility] [place], [place] [phone] documented as of this encounter Visit Diagnoses Not on filedocumented in this encounter Care Teams Team MemberRelationshipSpecialtyStart DateEnd Date Raghavendra Leyva MD [address] [place] [phone] PCP - GeneralFamily Medicine06/16/25 Felicita Coe NP [address] [facility] [place], [place] [phone] Nurse PractitionerFamily Medicine02/18/25documented as of this encounter
[2025-10-03 08:23] VITALS: BP 136/83; PULSE 121
== END 2025-10-03 08:45 | disposition home or self-care (01) ==
LOC: FBCO 07:53 → FBC 07:54
PROVIDERS: Visit Provider Midwife
DX: O24.419 Gestational diabetes mellitus in pregnancy, unspecified control (principal)
CPT/HCPCS: 59025